=== PATIENT | female | born 1925 | race Caucasian/White ===

== ENCOUNTER 2017-03-14 16:43 | Observation (INO) | payer MEDICARE, OTHER ==
[2017-03-14 17:33] LABS: Bilirubin Negative (Negative); Blood, Urine Negative (Negative); Glucose, Urine (Dipstick) Negative (Negative); Ketone, Urine Negative (Negative); Nitrite Negative (Negative); Protein, Urine (Dipstick) Negative (Neg-Trace)
--- NOTE | 2017-03-14 18:27 | RAD ---
PORTABLE CHEST 03/14/17 PROVIDED CLINICAL HISTORY: Chest pain. Status post injury. FINDINGS: Comparison is made with the study dated 03/06/17. The cardiac and mediastinal silhouette is unchanged in appearance. No focal consolidation evident. T he supine nature of the examination limits sensitivity for detection of pleural fluid and pneumothor ax, without evidence for such. IMPRESSION: No evidence for an acute cardiopulmonary process. POS: [facility]
--- NOTE | 2017-03-14 18:29 | RAD ---
PELVIC RADIOGRAPH 03/14/17 PROVIDED CLINICAL HISTORY: Pelvic pain status post fall. FINDINGS: Comparison 03/06/17. Postoperative changes involving the left hip appears stabilized as visualized. Degenerative changes involve the lumbars spine. Sequela of prior healed fracture involving the right superior and inferio r pubic rami near the symphysis pubis. No evidence for an acute fracture or other acute osseous abno rmality. If there is persistent clinical concern, conservative management and followup imaging are a dvised. IMPRESSION: As above. POS: [facility]
--- NOTE | 2017-03-14 18:31 | RAD ---
LEFT FOREARM RADIOGRAPHS TWO VIEWS 03/14/17 PROVIDED CLINICAL HISTORY: Left wrist pain status post injury. FINDINGS: There is a mildly displaced transversely oriented distal radial metaphyseal region fracture. Probabl e nondisplaced ulnar styloid fracture. No additional fracture is evident. Alignment appears otherwis e anatomic. Joint spaces appear preserved. IMPRESSION: 1. Mildly displaced distal radial metaphyseal region fracture. 2. Probable ulnar styloid fracture. POS: [facility]
--- NOTE | 2017-03-14 19:00 | RAD ---
LEFT HAND RADIOGRAPHS THREE VIEWS 03/14/17 PROVIDED CLINICAL HISTORY: Pain status post injury. FINDINGS: There is a transversely oriented mildly displaced distal radial metaphyseal region fracture. Nondisp laced ulnar styloid fracture. No additional fracture is evident. Advanced degenerative changes invol ve the first CMC joint. IMPRESSION: Distal radial and ulnar fractures as above. POS: [facility]
--- NOTE | 2017-03-14 19:07 | CT ---
CT BRAIN 03/14/17 PROVIDED CLINICAL HISTORY: Fall. FINDINGS: Comparison is made with the study dated 06/30/07. The ventricular system appears mildly prominent on the basis of central atrophy. There is no evidenc e for intracranial hemorrhage, or mass effect. There is a stable focus of calcification seen within the right frontoparietal white matter. Chronic microvascular ischemic changes are noted. The extracr anial soft tissues and osseous structures demonstrate an unremarkable CT appearance. IMPRESSION: No evidence for intracranial hemorrhage or mass effect. POS: [facility]
--- NOTE | 2017-03-14 19:08 | CT ---
CT CERVICAL SPINE 03/14/17 PROVIDED CLINICAL HISTORY: Neck pain status post fall. FINDINGS: There is no evidence for fracture or traumatic subluxation. No prevertebral soft tissue swelling is evident. Degenerative changes are seen. The visualized lung apices appear clear. IMPRESSION: No evidence for fracture or traumatic subluxation. POS: [facility]
[2017-03-14] MEDS ORDERED: Bacitracin Zinc 1 Packet ONE (19:27)
[2017-03-14 20:26] LABS: #Eosinphils 0.1 thou/uL (0.0-0.7); #Lymphocytes 2.4 thou/uL (1.20-3.40); #Monocytes 0.7 thou/uL (0.11-0.59); #Neutrophils 6.6 thou/uL (1.40-6.50); %Basophils 0.4 % (0.0-1.0); %Eosinophils 0.9 % (0.0-10.0); %Lymphocytes 24.1 % (21.0-51.0); %Monocytes 6.8 % (0.0-10.0); Hematocrit 35.9 % (36.0-47.0); Mean Platelet Volume 7.4 fL (7.4-10.4); Red Blood Cell (RBC) Count 4.13 mill/uL (4.20-5.40); White Blood Cell (WBC) Count 9.7 thou/uL (4.8-10.8)
[2017-03-14 20:53] LABS: ALT (SGPT) 9 U/L (8-55); AST (SGOT) 16 U/L (5-34); Alkaline Phosphatase 72 U/L (40-150); Anion Gap 12 mmol/L (10-20); BUN (Urea Nitrogen) 16 mg/dL (9.8-20.1); Bilirubin, Total 0.4 mg/dL (0.2-1.2); Calc. Creatinine Clearance 0 mL/min (70-130); Calcium 9.3 mg/dL (7.8-10.44); Carbon Dioxide 28 mmol/L (23-31); Chloride 105 mmol/L (98-107); Estimated GFR-MDRD 79; Globulin 2.2 g/dL (2.4-3.5); Protein, Total 6.1 g/dL (6.0-8.3); Troponin I 0.057 ng/mL (< 0.028)
[2017-03-14] MEDS ORDERED: Morphine Sulfate 2 MG/ML SYRINGE ONE (22:23)
[2017-03-14] MEDS ORDERED: Potassium Chloride 20 MEQ TAB ONE (22:24)
[2017-03-14 23:39] LABS: Troponin I 0.055 ng/mL (< 0.028)
[2017-03-14] MEDS ORDERED: Ondansetron HCl/PF 4 MG/2 ML Vial IVP PRN (23:50)
[2017-03-14] MEDS ORDERED: Morphine Sulfate 2 MG/ML SYRINGE SLOW IVP PRN (23:53)
[2017-03-15 00:29] VITALS: BMI 19.8
[2017-03-15] MEDS ORDERED: Potassium Chloride 40 MEQ in Sodium Chloride 0.9% 250 ML 250 ML IVPB SCH (01:00)
--- NOTE | 2017-03-15 01:10 | HP ---
DATE OF SERVICE: 03/14/2017 CHIEF COMPLAINT: Fall at home. HISTORY OF PRESENT ILLNESS: An 89-year-old female with history of dementia and hard of hearing, was brought from [facility] facility today for evaluation of fall. The patient was said to be get in and out of the shower and dry herself off when she took a step on a slippery floor, slipped and fell. She states that she hits her head and neck during the fall. She fell on her left side hutting her left arm that hits the bowl of the toilet. She reports pain in the left wrist as well as left rib. Denies chest pain or shortness of breath or dizziness. She denied palpitation. She stated that happened so fast. She did not pass out. REVIEW OF SYSTEMS: Constitutional: Negative of fever or chills, night sweats. Neurologic: No headaches, dizziness, no loss of consciousness. Respiratory: No cough, hemoptysis, or shortness of breath. Cardiovascular: No chest pain or palpitations. Gastrointestinal: No nausea, no vomiting, no diarrhea or constipation. Endocrine: No polyuria, polydipsia, polyphagia. Genitourinary: No dysuria, frequency or urgency. Hematology: No spontaneous bleeding or bruises or bleeding diastasis. The rest of review of systems is negative. PAST MEDICAL HISTORY: Only medical history is dementia and arthritis. PAST SURGICAL HISTORY: No surgical history was reported. Patient is really demented, cannot provide details of anything per se. PSYCHIATRIC HISTORY: No psychiatric history. SOCIAL HISTORY: No reported history of smoking, alcohol, or tobacco use. Currently resides at [facility]. MEDICATIONS: She does not have her list of medications with her and is not available able at this time of dictation. FAMILY HISTORY: Not able to obtain. PHYSICAL EXAMINATION: GENERAL: Frail elderly female, not in acute distress. She is receiving morphine in the ER. VITAL SIGNS: Blood pressure was 165/76, currently 110/75, pulse of 57, respiratory rate of 16, saturating 96% on room air. HEENT: Normocephalic, atraumatic. Sclerae and conjunctivae are clear. Pupils are round, equal, or reactive to light and accommodation. Extraocular muscles are intact. Oral mucous membrane is moist. No pharyngeal exudate. NECK: Supple. Trachea is midline. No jugular venous distention. LUNGS: Clear bilaterally. Excursions symmetric. No dullness to percussion. CARDIOVASCULAR: S1, S2 normal, no murmur. ABDOMEN: Soft, nontender, bowel sounds active. EXTREMITIES: She has +1 edema in the lower extremities. Her left arm is immobilized at this time with decreased range of motion due to pain. NEUROLOGIC: She is hard of hearing, but does not have any lateralizing signs to suggest any neurologic deficit. LABORATORY DATA: White blood cell count 9.7, hemoglobin 11.3, hematocrit 35.9, platelet count of 286. Chemistry: Sodium 142, potassium 3.1, chloride 105, bicarbonate 28, BUN 16, creatinine 0.7. LFTs normal. Cardiac troponin 0.055. Urinalysis is normal. Chemistry: Sodium 142, potassium 3.1, chloride 105, bicarbonate 28, BUN 12, creatinine 0.7. Again, x-ray studies were done including CT scan of the brain. CT brain shows no acute infarct, no evidence of intracranial hemorrhage or mass effect. Cervical spine CT scan shows no evidence of fracture or traumatic subluxation. X-ray of hand showed distal, radial, and ulnar fracture. Chest x-ray, no evidence of acute cardiopulmonary process. Pelvic x-ray shows no fracture while postoperative changes involving the left hip. ASSESSMENT AND PLAN: Fall at home resulting into the distal radial metaphyseal fracture, and nondisplaced ulnar styloid fracture. PLAN: 1. Admit the patient to medical/surgical floor. Orthopedic was consulted. The ER physician was told there it was nonoperable, it was immobilized and pain control with IV morphine was started and physical therapy evaluation. 2. Hypokalemia. This will be replaced with potassium supplement. 3. Dementia. Her current home medication is not available, we will resume as soon as this made available and she seems to have high blood pressure again, we can control this with hydralazine for now, fall precaution and we will resume home medication as soon as it is made available. 4. Deep venous thrombosis prophylaxis. [facility]
[2017-03-15] MEDS: Sodium Chloride 0.9% 1,000 ML IV SCH ×3 (01:47→21:37)
[2017-03-15 02:58] LABS: Troponin I 0.044 ng/mL (< 0.028)
[2017-03-15] MEDS: Enoxaparin Sodium 40 MG/0.4 ML SYRINGE SC SCH (05:20)
[2017-03-15 05:49] LABS: Anion Gap 15 mmol/L (10-20); BUN (Urea Nitrogen) 12 mg/dL (9.8-20.1); Calc. Creatinine Clearance 41 mL/min (70-130); Calcium 9.4 mg/dL (7.8-10.44); Carbon Dioxide 23 mmol/L (23-31); Chloride 107 mmol/L (98-107); Estimated GFR-MDRD 84
[2017-03-15 06:24] LABS: #Basophils 0.1 thou/uL (0.0-0.2); #Lymphocytes 1.8 thou/uL (1.20-3.40); #Monocytes 0.8 thou/uL (0.11-0.59); #Neutrophils 8.6 thou/uL (1.40-6.50); %Basophils 0.6 % (0.0-1.0); %Eosinophils 0.3 % (0.0-10.0); %Lymphocytes 16.1 % (21.0-51.0); Hematocrit 40.9 % (36.0-47.0); Mean Platelet Volume 8.1 fL (7.4-10.4); Red Blood Cell (RBC) Count 4.69 mill/uL (4.20-5.40); White Blood Cell (WBC) Count 11.3 thou/uL (4.8-10.8)
[2017-03-15] MEDS ORDERED: DONEPEZIL HCL 5 MG PO SCH (08:15)
[2017-03-15] MEDS: Oxybutynin Chloride 5 MG TAB PO SCH (08:26)
[2017-03-15] MEDS: Docusate 100 MG CAP PO SCH ×2 (08:26→20:08)
[2017-03-15] MEDS ORDERED: Non-Formulary Item 1 EACH (Oxybutynin Chloride [Oxybutynin Chloride] 5 MG) PO SCH (09:00)
[2017-03-15] MEDS ORDERED: Famotidine/PF 20 mg/2ml Vial SLOW IVP SCH (09:00)
--- NOTE | 2017-03-15 10:50 | PDOC.PN ---
- Subjective Encounter Start Date: 03/15/17 Encounter Start Time: 09:00 -: old records requested/rev Pt seen and examined, chart reviewed in its entirety. This is my first visit with thispatient. Admitted early this AM/last night after fall and traumatic wrist fracture. elevated biomarkers c/w demand ischemia. was in afib withRVR, but currently converted to NSR. home meds not ordered, pt hypertensive this morning per nursign Pt very [place], but was able to find out she tripped with her socks she was wearing and trie dot catch herself resulting in the previosuly mentioned fracture. Ortho was consulted form ER, felt it to be non-operative and pt placed in immobilizing splint. afevrile since admit, no n/v/D/C, no CP, no SOB - Objective MAR Reviewed: Yes Vital Signs & Weight: Vital Signs (12 hours) Temp Pulse Resp BP BP Pulse Ox 03/15/17 08:25 98.2 F 03/15/17 07:28 62 16 197/77 H 96 03/15/17 04:00 98.1 F 60 16 189/81 H 96 03/15/17 00:05 98.5 F 60 18 130/76 130/76 95 Weight Weight 98 lb 4 oz I&O: 03/14/17 03/15/17 03/16/17 06:59 06:59 06:59 Intake Total 440 Output Total 1525 Balance -1085 Result Diagrams: 03/15/17 06:01 03/15/17 04:52 Radiology Reviewed by me: Yes EKG Reviewed by me: Yes (NSR in low 100s on tele) Phys Exam - Physical Examination Constitutional: NAD HEENT: PERRLA, moist MMs, sclera anicteric, oral pharynx no lesions Neck: no nodes, no JVD, supple, full ROM Respiratory: no wheezing, no rales, no rhonchi, clear to auscultation bilateral Cardiovascular: RRR, no significant murmur, no rub Gastrointestinal: soft, non-tender, no distention, positive bowel sounds Musculoskeletal: no edema, pulses present left forearm in splint, not unwrapped Neurological: non-focal, normal sensation, moves all 4 limbs Lymphatic: no nodes Psychiatric: A&O x 3 Deviation from normal: anxious Skin: no rash, normal turgor, cap refill <2 seconds Dx/Plan (1) Fall on same level as cause of accidental injury Code(s): W18.30XA - FALL ON SAME LEVEL, UNSPECIFIED, INITIAL ENCOUNTER Status : Acute (2) Left wrist fracture Code(s): S62.102A - FRACTURE OF UNSP CARPAL BONE, LEFT WRIST, INIT FOR CLOS FX Status: Acute (3) Displaced fracture of left radial styloid process, initial encounter for closed fracture Code(s): S52.512A - DISP FX OF LEFT RADIAL STYLOID PROCESS, INIT FOR CLOS FX Status: Acute (4) Hypokalemia Code(s): E87.6 - HYPOKALEMIA Status: Acute (5) Demand ischemia Code(s): I24.8 - OTHER FORMS OF ACUTE ISCHEMIC HEART DISEASE Status: Acute - Plan cont current plan of care, PT/OT, mental health social worker * . PT/OT eval D/C planning, likely will need a higher level of care K replaced resume isosorbide, added in PRN hydralazine for her BP PAin control D/C when dispo arranged
[2017-03-15] MEDS: Famotidine 40 MG/4 ML VIAL SLOW IVP SCH ×2 (12:42→20:09)
[2017-03-15] MEDS: Acetaminophen 325 MG TAB PO PRN ×2 (12:43→16:37)
[2017-03-15] MEDS ORDERED: Donepezil HCl 5 MG TAB PO SCH (21:00)
[2017-03-16] MEDS: Enoxaparin Sodium 40 MG/0.4 ML SYRINGE SC SCH (05:46)
[2017-03-16 06:18] LABS: #Basophils 0.1 thou/uL (0.0-0.2); #Eosinphils 0.1 thou/uL (0.0-0.7); #Lymphocytes 1.7 thou/uL (1.20-3.40); #Neutrophils 6.9 thou/uL (1.40-6.50); %Basophils 0.7 % (0.0-1.0); %Eosinophils 0.8 % (0.0-10.0); %Lymphocytes 17.3 % (21.0-51.0); %Monocytes 10.5 % (0.0-10.0); Hematocrit 37.6 % (36.0-47.0); Mean Platelet Volume 8.1 fL (7.4-10.4); Red Blood Cell (RBC) Count 4.27 mill/uL (4.20-5.40); White Blood Cell (WBC) Count 9.8 thou/uL (4.8-10.8)
[2017-03-16 06:33] LABS: Anion Gap 12 mmol/L (10-20); BUN (Urea Nitrogen) 8 mg/dL (9.8-20.1); Calc. Creatinine Clearance 40 mL/min (70-130); Calcium 8.8 mg/dL (7.8-10.44); Carbon Dioxide 23 mmol/L (23-31); Chloride 108 mmol/L (98-107); Estimated GFR-MDRD 89
[2017-03-16] MEDS: Acetaminophen 325 MG TAB PO PRN (09:47)
[2017-03-16] MEDS: Docusate 100 MG CAP PO SCH (09:48)
[2017-03-16] MEDS: Oxybutynin Chloride 5 MG TAB PO SCH (09:48)
[2017-03-16] MEDS: Famotidine 40 MG/4 ML VIAL SLOW IVP SCH (10:28)
--- NOTE | 2017-03-16 15:08 | DIS ---
DATE OF ADMISSION: 03/14/2017 DATE OF DISCHARGE: 03/16/2017 DISCHARGE DIAGNOSES: 1. Mechanical fall on same level resulting in injury. 2. Left wrist fracture. 3. Left ulnar styloid process displaced fracture. 4. Hypokalemia. 5. Essential hypertension. CONSULTATIONS: Orthopedics in the emergency department. PROCEDURES: Splinting of her left wrist by the emergency room physician. HOSPITAL COURSE: Ms. Roberts is an 89-year-old female with a history of hypertension, dementia and DJD, who presents to the emergency department after a fall at her assisted living facility. Apparently, she was wearing some non-skid socks, was walking out of wet bathroom and tripped over the threshold and fell onto her outstretched left arm , resulting in the left wrist and left elbow fracture. She was brought to the emergency department for evaluation, where these findings were confirmed. She was subsequently admitted for pain control. Orthopedics was apparently consulted in the emergency department, reviewed the films and felt this just need to be splinted and was not amenable to surgical correction nor necessary. The patient was placed in observation and we were called. Overnight, the patient did well. Her pain was controlled and arrangements were made for her to go back to assisted living. She is already on the maximal level of care there on the third floor at her facility. She then had a fever that afternoon to 100.3, so we decided to watch her overnight. Blood pressure continued to spike up periodically amenable to IV hydralazine, so she was started on amlodipine 10 mg daily in addition to her isosorbide mononitrate. After the amlodipine, her blood pressure was well controlled and she was stable for discharge to her assisted living facility at [facility] with their maximal level of care. PHYSICAL EXAMINATION: The patient was seen and examined on rounds. Discharge plan and disposition were discussed with the patient face to face at the bedside. DISCHARGE MEDICATIONS: 1. Tylenol 1 g q.6 hours p.r.n. pain or fever. 2. Vitamin D3 of 1000 units p.o. daily. 3. Aricept 5 mg p.o. at bedtime. 4. Isosorbide mononitrate 30 mg p.o. daily. 5. Imodium 1 mg t.i.d. p.r.n. diarrhea. 6. Melatonin 5 mg p.o. at bedtime. 7. Oxybutynin chloride 5 mg p.o. daily. 8. Seroquel 25 mg p.o. at bedtime. 9. Amlodipine 10 mg p.o. daily, new prescription, 30 tablets with 1 refill sent to the pharmacy. 10. Tramadol 50 mg p.o. at bedtime, #61 refill sent to her pharmacy. DISCHARGE CONDITION: Good. DISPOSITION: She will be discharged to [place] at [facility]. FOLLOWUP APPOINTMENTS: 1. PCP, Dr. Massimo Moreau in a week. 2. Orthopedics as needed. MTDD
[2017-03-16 15:26] VITALS: BP 118/53; TEMP 97.8
== END 2017-03-16 16:20 ==
LOC: ERS 16:43 → 2NO 22:05
PROVIDERS: ADMIT Internal Medicine; ATTEND Internal Medicine
DX: S52.612A Displaced fracture of left ulna styloid process, initial encounter for closed fracture (principal); F03.90 Unspecified dementia, unspecified severity, without behavioral disturbance, psychotic disturbance, mood disturbance, and anxiety; E87.6 Hypokalemia; I10 Essential (primary) hypertension; M19.90 Unspecified osteoarthritis, unspecified site; Z88.8 Allergy status to other drugs, medicaments and biological substances; Z88.5 Allergy status to narcotic agent; Z88.0 Allergy status to penicillin; Z79.899 Other long term (current) drug therapy; W18.2XXA Fall in (into) shower or empty bathtub, initial encounter
CPT/HCPCS: 29125; 70450; 71010; 72125; 72170; 73090; 73130; 80048 ×2; 80053; 81003; 82553; 84484 ×3; 85025 ×3; 93005; 96372 ×2; 96374; 96375 ×2; 96376 ×2; 97116 ×2; 97139 ×2; 99285; G0378; G8978; G8979; 36415; A4216; J0360; J1650; J2270; J3480; J7050; S0028

== ENCOUNTER 2017-07-01 02:19 | Emergency (ER) | payer MEDICARE, OTHER ==
[2017-07-01 04:12] LABS: Bilirubin Negative (Negative); Blood, Urine Negative (Negative); Glucose, Urine (Dipstick) Negative (Negative); Ketone, Urine Negative (Negative); Nitrite Negative (Negative); Protein, Urine (Dipstick) Negative (Neg-Trace); Urobilinogen 0.2 mg/dL (0.2-1.0)
[2017-07-01 04:16] LABS: Hyaline Casts/LPF 0-3 HYALINE CAST LPF (0-3 Hyaline); RBC/HPF 0-3 HPF (0-3); Squamous Epithelial 0-3 HPF (0-3); WBC/HPF 0-3 HPF (0-3)
[2017-07-01 04:32] LABS: Bacteria/HPF 1+ HPF (None Seen); Yeast-All Forms None Seen HPF (None Seen)
--- NOTE | 2017-07-01 09:03 | CT ---
PRELIMINARY REPORT/[facility]/EMERGENCY AFTER HOURS PROCEDURE: EXAM: CT Head Without Intravenous Contrast CLINICAL HISTORY: 89 years old, female; Injury or trauma; Fall; Initial encounter; Blunt trauma (contusions or hematoma s); Consciousness not specified; Patient HX: S/P fall TECHNIQUE: Axial computed tomography images of the head/brain without intravenous contrast. COMPARISON: Head CT report dated 06/30/2007 FINDINGS: Brain: Calcification in the right alegre radiata/centrum semiovale measuring up to 5 mm No hemorrhage . Mild white matter disease. No edema. Ventricles: Unremarkable. No ventriculomegaly. Bones/joints: Unremarkable. No acute fracture. Soft tissues: Unremarkable. Sinuses: Unremarkable as visualized. No acute sinusitis. Mastoid air cells: Unremarkable as visualized. No mastoid effusion. IMPRESSION: Right parietal calcification measuring 5 mm. Comparison with prior images would be helpful No intracranial hemorrhage.Please see discussion above. Thank you for allowing us to participate in the care of your patient. Dictated and Authenticated by: Karlos Flor MD 07/01/2017 3:45 AM Central Time ([place] & [place]) FINAL REPORT CT BRAIN: Date: 07/01/17 HISTORY: 89-year-old female with history of fall. FINDINGS: This is the final report. Preliminary exam was performed by [facility]. CT images of brain demonstrate an area of right periventricular white matter/alegre radiata calcifica tions, unchanged since the previous exam. No evidence of acute intracranial masses, hemorrhages, stro kes, or contusions seen. The ventricles are of normal size. No evidence of acute intracranial patholo gy is seen. I agree with the preliminary report given by Kalie. POS: [facility]
== END 2017-07-01 05:28 | disposition home or self-care (01) ==
LOC: ERS 02:19
DX: M25.511 Pain in right shoulder (principal); F03.90 Unspecified dementia, unspecified severity, without behavioral disturbance, psychotic disturbance, mood disturbance, and anxiety; M19.90 Unspecified osteoarthritis, unspecified site; D50.9 Iron deficiency anemia, unspecified; Z79.899 Other long term (current) drug therapy; W19.XXXA Unspecified fall, initial encounter
CPT/HCPCS: 70450; 81003; 81015